=== PATIENT | female | born 1950 | race Caucasian/White ===

== ENCOUNTER → 2021-02-24 | Outpatient (CLI) | payer MEDICARE | END | disposition home or self-care (01) | LOC: RADPV 09:42 | PROVIDERS: ATTEND Internal Medicine Cardiovascular Disease | DX: I08.0 Rheumatic disorders of both mitral and aortic valves (principal); I70.293 Other atherosclerosis of native arteries of extremities, bilateral legs; I74.3 Embolism and thrombosis of arteries of the lower extremities; I70.92 Chronic total occlusion of artery of the extremities; I50.1 Left ventricular failure, unspecified | CPT/HCPCS: 93306; 93925 ==